=== PATIENT | female | born 1970 | race Caucasian/White ===

== ENCOUNTER 2017-10-30 16:59 | Inpatient (IN) | payer OTHER ==
[2017-10-30 17:26] VITALS: BMI 27.3
--- NOTE | 2017-10-30 18:04 | HP ---
CIWA Score - CIWA Score Nausea/Vomitin-Mild Nausea/No Vomiting Muscle Tremors: 4-Moderate,w/Arms Extend Anxiety: 4-Mod. Anxious/Guarded Agitation: 4-Moderately Restless Paroxysmal Sweats: 1-Minimal Palms Moist Orientation: 0-Oriented Tacttile Disturbances: 0-None Auditory Disturbances: 0-None Visual Disturbances: 0-None Headache: 0-None Present CIWA-Ar Total Score: 14 Admission ROS BHS - HPI Chief Complaint: withdrawal sx Allergies/Adverse Reactions: Allergies Allergy/AdvReac Type Severity Reaction Status Date / Time No Known Allergies Allergy Verified 10/30/17 17:30 History of Present Illness: 47 years old female with long history of alcohol nicotine dependence has anxiety and depression is admitted to detox Exam Limitations: No Limitations - Ebola screening Have you traveled outside of the country in the last 21 days: No Have you had contact with anyone from an Ebola affected area: No Have you been sick,other than usual withdrawal symptoms: No Do you have a fever: No - Review of Systems Constitutional: Changes in sleep, Weight Stable EENT: reports: No Symptoms Reported Respiratory: reports: No Symptoms reported Cardiac: reports: No Symptoms Reported GI: reports: Nausea, Poor Fluid Intake, Indigestion, Abdominal cramping : reports: No Symptoms Reported Musculoskeletal: reports: No Symptoms Reported Integumentary: reports: No Symptoms Reported Neuro: reports: Tremors Endocrine: reports: No Symptoms Reported Hematology: reports: No Symptoms Reported Psychiatric: reports: Judgement Intact, Orientated x3, Anxious, Depressed Other Systems: Reviewed and Negative Patient History - Patient Medical History Hx Anemia: No Hx Asthma: No Hx Chronic Obstructive Pulmonary Disease (COPD): No Hx Cancer: No Hx Cardiac Disorders: No Hx Congestive Heart Failure: No Hx Hypertension: No Hx Hypercholesterolemia: No Hx Pacemaker: No HX Cerebrovascular Accident: No Hx Seizures: No Hx Dementia: No Hx Diabetes: No Hx Gastrointestinal Disorders: No Hx Liver Disease: No Hx Genitourinary Disorders: No Hx Sexually Transmitted Disorders: No Hx Renal Disease (ESRD): No Hx Thyroid Disease: No Hx Human Immunodeficiency Virus (HIV): No Hx Hepatitis C: No Hx Depression: Yes Hx Suicide Attempt: No Hx Bipolar Disorder: No Hx Schizophrenia: No - Patient Surgical History Past Surgical History: No - PPD History Previous Implant?: Yes Documented Results: Negative w/o proof Implanted On Prior [facility] Admission?: No PPD to be Administered?: Yes - Reproductive History Last Menstrual Period: 10/15/17 Patient : No - Smoking Cessation Smoking history: Current every day smoker Have you smoked in the past 12 months: Yes Aproximately how many cigarettes per day: 10 Cigars Per Day: 0 Hx Chewing Tobacco Use: No Initiated information on smoking cessation: Yes 'Breaking Loose' booklet given: 10/30/17 - Substance & Tx. History Hx Alcohol Use: Yes Hx Substance Use: Yes Substance Use Type: Alcohol, Cocaine Hx Substance Use Treatment: Yes (2002) - Substances Abused Alcohol Route: Oral Frequency: Daily Amount used: VODKA 2 PINTS Age of first use: 11 Date of Last Use: 10/30/17 Family Disease History - Family Disease History Family Disease History: Other: Father (/mva), Brother (no brother) Admission Physical Exam BHS - Vital Signs Vital Signs: Vital Signs - 24 hr 10/30/17 17:22 Temperature 98.8 F Pulse Rate 76 Respiratory 18 Rate Blood Pressure 150/100 - Physical General Appearance: Yes: Appropriately Dressed, Mild Distress, Alcohol on Breath , Tremorous, Irritable, Sweating, Anxious HEENTM: Yes: Hearing grossly Normal, Normal ENT Inspection, Normocephalic, Normal Voice Respiratory: Yes: Chest Non-Tender, Lungs Clear, Normal Breath Sounds, No Respiratory Distress, No Accessory Muscle Use Neck: Yes: Supple, Trachea in good position Breast: Yes: Breasts Symetrical Cardiology: Yes: Regular Rhythm, Regular Rate, S1, S2 Abdominal: Yes: Normal Bowel Sounds, Non Tender, Soft Genitourinary: Yes: Within Normal Limits Back: Yes: Normal Inspection Musculoskeletal: Yes: full range of Motion, Gait Steady Extremities: Yes: Normal Inspection, Normal Range of Motion, Non-Tender, Tremors Neurological: Yes: Fully Oriented, Alert, Motor Strength 5/5, Normal Response, Depressed Affect Integumentary: Yes: Warm Lymphatic: Yes: Within Normal Limits - Diagnostic (1) Alcohol dependence with uncomplicated withdrawal Current Visit: Yes Status: Acute (2) Nicotine dependence Current Visit: Yes Status: Acute Qualifiers: Nicotine product type: cigarettes Substance use status: in withdrawal Qualified Code(s): F17.213 - Nicotine dependence, cigarettes, with withdrawal (3) GERD (gastroesophageal reflux disease) Current Visit: Yes Status: Chronic Qualifiers: Esophagitis presence: without esophagitis Qualified Code(s): K21.9 - Gastro -esophageal reflux disease without esophagitis (4) Depression (emotion) Current Visit: Yes Status: Suspected Qualifiers: Depression Type: dysthymia Qualified Code(s): F34.1 - Dysthymic disorder Cleared for Admission BHS - Detox or Rehab [facility] Level of Care: Medically Managed Detox Regimen/Protocol: Librium S Breath Alcohol Content Breath Alcohol Content: 0.130 Urine Pregancy Test - Result Urine Test Results: Negative- NO Line Present Urine Drug Screen - Results Drug Screen Negative: No Urine Drug Screen Results: BLU-Cocaine
[2017-10-30] MEDS ORDERED: P-EPHED 60MG/TRIPROLIDI 2.5MG TABLET PO PRN (18:07)
[2017-10-30] MEDS ORDERED: LOPERAMIDE HCL 2 MG CAPSULE PO PRN (18:07)
[2017-10-30] MEDS ORDERED: MAGNESIUM HYDROX 2400MG/30ML ORAL SUSPENSION 30 ML CUP PO PRN (18:07)
[2017-10-30] MEDS ORDERED: MAGNESIUM CITRATE 300 ML BOTTLE PO PRN (18:07)
[2017-10-30] MEDS ORDERED: MENTHOL/PHENOL 1 EACH UD MM PRN (18:07)
[2017-10-30] MEDS ORDERED: ACETAMINOPHEN 325 MG TABLET (FP) PO PRN (18:07)
[2017-10-30] MEDS ORDERED: MAG HYDROX/AL HYDROX/SIMETH 30 ML UNIT-DOSE CUP PO PRN (18:07)
[2017-10-30] MEDS ORDERED: NICOTINE POLACRILEX 2 MG GUM BC PRN (18:07)
[2017-10-30] MEDS: chlordiazePOXIDE HCL 25 MG CAPSULE PO PRN (20:30)
[2017-10-30] MEDS: RANITIDINE HCL 150 MG TABLET (FP) PO SCH ×2 (20:30→22:10)
[2017-10-30] MEDS: chlordiazePOXIDE HCL 25 MG CAPSULE PO SCH (22:10)
[2017-10-30] MEDS: THIAMINE HCL 100 MG TABLET (FP) PO SCH (22:10)
[2017-10-31 03:28] LABS: URINE APPEARANCE CLEAR; URINE BILIRUBIN NEGATIVE (NEGATIVE); URINE BLOOD NEGATIVE (NEGATIVE); URINE COLOR LTYELLOW; URINE GLUCOSE (UA) NEGATIVE (NEGATIVE); URINE KETONE NEGATIVE (NEGATIVE); URINE NITRITE NEGATIVE (NEGATIVE); URINE PROTEIN NEGATIVE (NEGATIVE); URINE UROBILINOGEN NEGATIVE mg/dL (0.2-1.0)
[2017-10-31] MEDS: chlordiazePOXIDE HCL 25 MG CAPSULE PO SCH ×4 (05:46→22:13)
[2017-10-31 09:49] LABS: MCH 32.2 pg (25.7-33.7); MCHC 34.3 g/dl (32.0-36.0); MEAN CELL VOLUME 93.9 fl (80-96); MEAN PLT VOLUME 7.6 fl (7.5-11.1); PLATELET COUNT 244 K/MM3 (134-434); RDW 12.6 % (11.6-15.6); WHITE BLOOD COUNT 6.5 K/mm3 (4.0-10.0)
--- NOTE | 2017-10-31 10:13 | EKG ---
Test Reason : Blood Pressure : / mmHG Vent. Rate : 062 BPM Atrial Rate : 062 BPM P-R Int : 134 ms QRS Dur : 094 ms QT Int : 426 ms P-R-T Axes : 031 048 039 degrees QTc Int : 432 ms NORMAL SINUS RHYTHM CANNOT RULE OUT INFERIOR INFARCT NO PREVIOUS ECGS AVAILABLE Confirmed by RADHA ONEIL MD ([id number]) on 10/31/2017 10:12:56 AM Referred By: Confirmed By:RADHA ONEIL MD
[2017-10-31 10:22] LABS: ALBUMIN 4.2 g/dl (3.4-5.0); ALK PHOS 74 U/L (45-117); ANION GAP 5 (8-16); BILIRUBIN,TOTAL 0.5 mg/dL (0.2-1.0); CALCIUM 8.7 mg/dL (8.5-10.1); CO2 31 mmol/L (21-32); CREATININE 0.9 mg/dL (0.55-1.02); GLUCOSE,RANDOM 92 mg/dL (74-106); SGOT/AST 22 U/L (15-37); SGPT/ALT 36 U/L (12-78); TOT PROT 7.6 g/dl (6.4-8.2)
[2017-10-31] MEDS: PRENATAL VITAMINS W/ FOLIC ACID TABLET (FP) PO SCH (10:32)
[2017-10-31] MEDS: RANITIDINE HCL 150 MG TABLET (FP) PO SCH ×2 (10:32→22:13)
[2017-10-31] MEDS: NICOTINE 14 MG/24 HOURS TOPICAL PATCH TD SCH (10:32)
[2017-10-31 11:47] LABS: HIV 1 & 2 AB NEGATIVE; HIV 1 AGp24 NEGATIVE
[2017-10-31] MEDS ORDERED: FLU VACCINE QUAD 60 MCG/0.5 ML (MDV 17-18) IM ONE (12:00)
[2017-10-31 12:10] LABS: URINE LEUK ESTERASE Negative (NEGATIVE)
--- NOTE | 2017-10-31 12:52 | CONSULT ---
[facility] Psychiatric Consult - Data Date of interview: 10/31/17 Admission source: [facility] Identifying data: Pt. is a 47 year old female, single, unemployed with no kids. Pt. admitted to for detox from alcohol and cocaine dependence. Substance Abuse History: Alcohol- begun drinking alcohol at age 14. Has been drinking heavily for the past 3 years. Reports drinking 2 pints of vodka and a bottle of wine per day. Last drink was on 10/30/2017. Cocaine- Begun using cocaine in College. Reports using cocaine several times per month. Approximately $300 per month. Last used cocaine " couple weeks ago.". Cigarettes- Smoke approximately 10 cigaettes per day. Begun smoking cigarettes at age 32. Medical History: Pt. denies. Psychiatric History: Pt. denies a history of psychiatric hospitalization but reports a history of depression and bipolar (not receiving treatment for bipolar disorder) and is currently on effexor 150mg PO qam. Physical/Sexual Abuse/Trauma History: Pt. denies. Mental Status Exam - Mental Status Exam Alert and Oriented to: Time, Place, Person Cognitive Function: Good Patient Appearance: Well Groomed Mood: Euthymic Affect: Appropriate Patient Behavior: Appropriate, Cooperative Speech Pattern: Clear Voice Loudness: Normal Thought Process: Goal Oriented Thought Disorder: Not Present Hallucinations: Denies Suicidal Ideation: Denies Homicidal Ideation: Denies Insight/Judgement: Fair Sleep: Poorly (Will order trazodone 50mg for insomnia.) Appetite: Good Muscle strength/Tone: Normal Gait/Station: Normal Psychiatric Findings - Problem List ([place] 1, 2,3) (1) Substance induced mood disorder Current Visit: Yes Status: Acute (2) Alcohol dependence with uncomplicated withdrawal Current Visit: Yes Status: Acute (3) Nicotine dependence Current Visit: Yes Status: Acute Qualifiers: Nicotine product type: cigarettes Substance use status: in withdrawal Qualified Code(s): F17.213 - Nicotine dependence, cigarettes, with withdrawal - Initial Treatment Plan Initial Treatment Plan: Psychoeducation provided. Chart reviewed. Contacted patient's pharmacy and it was confirmed that patient picked up her prescription of effexor 150mg ER on 10/22/2017 Pt. to be prescribed effexor 150mg ER qam. Pt.also to be started on trazodone 50mg qhs for insomnia. Pt. reports positive effect from previously taking trazodone 50mg for insomnia. Benefits and side effects discussed with patient. Verbal consent given by patient. Pt. agreeable with plan. Will continue to monitor.
--- NOTE | 2017-10-31 13:15 | PN ---
S CIWA - CIWA Score Nausea/Vomitin Muscle Tremors: 3 Anxiety: 3 Agitation: 3 Paroxysmal Sweats: 3 Orientation: 0-Oriented Tacttile Disturbances: 1-Very Mild Itch/Numbness Auditory Disturbances: 0-None Visual Disturbances: 0-None Headache: 1-Very Mild CIWA-Ar Total Score: 17 S Progress Note (SOAP) Subjective: nausea, sweats, interrupted sleep, anxiety, tremors Objective: 10/31/17 13:14 Vital Signs - 24 hr 10/30/17 10/30/17 10/31/17 17:22 21:53 00:26 Temperature 98.8 F 98.4 F Pulse Rate 76 68 78 Respiratory 18 18 18 Rate Blood Pressure 150/100 158/69 10/31/17 10/31/17 10/31/17 00:30 02:26 03:26 Temperature Pulse Rate 83 64 Respiratory 18 18 18 Rate Blood Pressure 10/31/17 10/31/17 10/31/17 03:30 05:30 06:39 Temperature 97.9 F Pulse Rate 64 63 63 Respiratory 18 18 16 Rate Blood Pressure 139/88 10/31/17 10:01 Temperature 97.4 F L Pulse Rate 69 Respiratory 18 Rate Blood Pressure 133/92 Laboratory Tests 10/31/17 10/31/17 10/31/17 00:00 07:00 07:00 WBC 6.5 RBC 4.77 Hgb 15.4 H Hct 44.8 MCV 93.9 MCH 32.2 MCHC 34.3 RDW 12.6 Plt Count 244 MPV 7.6 Sodium Potassium Chloride Carbon Dioxide Anion Gap BUN Creatinine Creat Clearance w eGFR Random Glucose Calcium Total Bilirubin AST ALT Alkaline Phosphatase Total Protein Albumin Urine Color Ltyellow Urine Appearance Clear Urine pH 6.0 Ur Specific [place] 1.016 Urine Protein Negative Urine Glucose (UA) Negative Urine Ketones Negative Urine Blood Negative Urine Nitrite Negative Urine Bilirubin Negative Urine Urobilinogen Negative Ur Leukocyte Esterase Negative RPR Titer HIV 1&2 Antibody Screen Negative HIV P24 Antigen Negative 10/31/17 10/31/17 07:00 07:00 WBC RBC Hgb Hct MCV MCH MCHC RDW Plt Count MPV Sodium 137 Potassium 4.1 Chloride 101 Carbon Dioxide 31 Anion Gap 5 L BUN 17 Creatinine 0.9 Creat Clearance w eGFR > 60 Random Glucose 92 Calcium 8.7 Total Bilirubin 0.5 AST 22 ALT 36 Alkaline Phosphatase 74 Total Protein 7.6 Albumin 4.2 Urine Color Urine Appearance Urine pH Ur Specific [place] Urine Protein Urine Glucose (UA) Urine Ketones Urine Blood Urine Nitrite Urine Bilirubin Urine Urobilinogen Ur Leukocyte Esterase RPR Titer Nonreactive HIV 1&2 Antibody Screen HIV P24 Antigen Assessment: 10/31/17 13:15 withdrawal sx, cotn detox, prn meications, fluids, encourage ambualtion
[2017-10-31] MEDS: guaiFENesin/D-METHORPHAN HB 10 ML UNIT-DOSE CUPS PO PRN (19:32)
[2017-10-31] MEDS: traZODone HCL 50 MG TABLET (FP) PO SCH (22:13)
[2017-10-31] MEDS: THIAMINE HCL 100 MG TABLET (FP) PO SCH (22:13)
[2017-11-01] MEDS: chlordiazePOXIDE HCL 25 MG CAPSULE PO SCH ×3 (05:11→17:07)
[2017-11-01] MEDS: PRENATAL VITAMINS W/ FOLIC ACID TABLET (FP) PO SCH (10:22)
[2017-11-01] MEDS: NICOTINE 14 MG/24 HOURS TOPICAL PATCH TD SCH (10:22)
[2017-11-01] MEDS: RANITIDINE HCL 150 MG TABLET (FP) PO SCH ×2 (10:24→22:32)
[2017-11-01] MEDS: VENLAFAXINE HCL 150 MG E.R. CAPSULE PO SCH (10:24)
--- NOTE | 2017-11-01 14:42 | PN ---
S CIWA - CIWA Score Nausea/Vomitin-Mild Nausea/No Vomiting Muscle Tremors: 3 Anxiety: 4-Mod. Anxious/Guarded Agitation: 3 Paroxysmal Sweats: 3 Orientation: 0-Oriented Tacttile Disturbances: 0-None Auditory Disturbances: 0-None Visual Disturbances: 0-None Headache: 0-None Present CIWA-Ar Total Score: 14 BHS Progress Note (SOAP) Subjective: Sweating,anxiety,tremors,restless,interrupted sleep. Objective: 11/01/17 14:41 Vital Signs - 8 hr 11/01/17 11/01/17 10:00 14:36 Temperature 97.7 F 97.7 F Pulse Rate 74 70 Respiratory 18 18 Rate Blood Pressure 115/76 137/75 Laboratory Tests 10/30/17 10/31/17 10/31/17 07:00 00:00 07:00 WBC RBC Hgb Hct MCV MCH MCHC RDW Plt Count MPV Sodium Potassium Chloride Carbon Dioxide Anion Gap BUN Creatinine Creat Clearance w eGFR Random Glucose Calcium Total Bilirubin AST ALT Alkaline Phosphatase Total Protein Albumin Urine Color Ltyellow Urine Appearance Clear Urine pH 6.0 Ur Specific [place] 1.016 Urine Protein Negative Urine Glucose (UA) Negative Urine Ketones Negative Urine Blood Negative Urine Nitrite Negative Urine Bilirubin Negative Urine Urobilinogen Negative Ur Leukocyte Esterase Negative RPR Titer Hepatitis C Antibody <0.1 HIV 1&2 Antibody Screen Negative HIV P24 Antigen Negative 10/31/17 10/31/17 10/31/17 07:00 07:00 07:00 WBC 6.5 RBC 4.77 Hgb 15.4 H Hct 44.8 MCV 93.9 MCH 32.2 MCHC 34.3 RDW 12.6 Plt Count 244 MPV 7.6 Sodium 137 Potassium 4.1 Chloride 101 Carbon Dioxide 31 Anion Gap 5 L BUN 17 Creatinine 0.9 Creat Clearance w eGFR > 60 Random Glucose 92 Calcium 8.7 Total Bilirubin 0.5 AST 22 ALT 36 Alkaline Phosphatase 74 Total Protein 7.6 Albumin 4.2 Urine Color Urine Appearance Urine pH Ur Specific [place] Urine Protein Urine Glucose (UA) Urine Ketones Urine Blood Urine Nitrite Urine Bilirubin Urine Urobilinogen Ur Leukocyte Esterase RPR Titer Nonreactive Hepatitis C Antibody HIV 1&2 Antibody Screen HIV P24 Antigen labs noted Assessment: 11/01/17 14:41 Withdrawal sx. Plan: Continue detox
[2017-11-01] MEDS: chlordiazePOXIDE HCL 25 MG CAPSULE PO PRN (18:55)
[2017-11-01] MEDS: traZODone HCL 50 MG TABLET (FP) PO SCH (22:32)
[2017-11-01] MEDS: THIAMINE HCL 100 MG TABLET (FP) PO SCH (22:32)
[2017-11-01] MEDS: chlordiazePOXIDE 5 MG CAPSULE PO SCH (22:32)
[2017-11-02] MEDS: chlordiazePOXIDE 5 MG CAPSULE PO SCH ×3 (06:18→17:24)
--- NOTE | 2017-11-02 10:01 | PN ---
BHS Progress Note (SOAP) Subjective: interrupted sleep anxiety Objective: 11/02/17 10:00 Vital Signs Temperature 97.7 F 11/02/17 09:54 Pulse Rate 69 11/02/17 09:54 Respiratory Rate 16 11/02/17 09:54 Blood Pressure 115/87 11/02/17 09:54 O2 Sat by Pulse Oximetry (%) Laboratory Last Values WBC 6.5 K/mm3 (4.0-10.0) 10/31/17 07:00 RBC 4.77 M/mm3 (3.60-5.2) 10/31/17 07:00 Hgb 15.4 GM/dL (10.7-15.3) H 10/31/17 07:00 Hct 44.8 % (32.4-45.2) 10/31/17 07:00 MCV 93.9 fl (80-96) 10/31/17 07:00 MCH 32.2 pg (25.7-33.7) 10/31/17 07:00 MCHC 34.3 g/dl (32.0-36.0) 10/31/17 07:00 RDW 12.6 % (11.6-15.6) 10/31/17 07:00 Plt Count 244 K/MM3 (134-434) 10/31/17 07:00 MPV 7.6 fl (7.5-11.1) 10/31/17 07:00 Sodium 137 mmol/L (136-145) 10/31/17 07:00 Potassium 4.1 mmol/L (3.5-5.1) 10/31/17 07:00 Chloride 101 mmol/L (98-107) 10/31/17 07:00 Carbon Dioxide 31 mmol/L (21-32) 10/31/17 07:00 Anion Gap 5 (8-16) L 10/31/17 07:00 BUN 17 mg/dL (7-18) 10/31/17 07:00 Creatinine 0.9 mg/dL (0.55-1.02) 10/31/17 07:00 Creat Clearance w eGFR > 60 (>60) 10/31/17 07:00 Random Glucose 92 mg/dL (74-106) 10/31/17 07:00 Calcium 8.7 mg/dL (8.5-10.1) 10/31/17 07:00 Total Bilirubin 0.5 mg/dL (0.2-1.0) 10/31/17 07:00 AST 22 U/L (15-37) 10/31/17 07:00 ALT 36 U/L (12-78) 10/31/17 07:00 Alkaline Phosphatase 74 U/L (45-117) 10/31/17 07:00 Total Protein 7.6 g/dl (6.4-8.2) 10/31/17 07:00 Albumin 4.2 g/dl (3.4-5.0) 10/31/17 07:00 Urine Color Ltyellow 10/31/17 00:00 Urine Appearance Clear 10/31/17 00:00 Urine pH 6.0 (5.0-8.0) 10/31/17 00:00 Ur Specific [place] 1.016 (1.001-1.035) 10/31/17 00:00 Urine Protein Negative (NEGATIVE) 10/31/17 00:00 Urine Glucose (UA) Negative (NEGATIVE) 10/31/17 00:00 Urine Ketones Negative (NEGATIVE) 10/31/17 00:00 Urine Blood Negative (NEGATIVE) 10/31/17 00:00 Urine Nitrite Negative (NEGATIVE) 10/31/17 00:00 Urine Bilirubin Negative (NEGATIVE) 10/31/17 00:00 Urine Urobilinogen Negative mg/dL (0.2-1.0) 10/31/17 00:00 Ur Leukocyte Esterase Negative (NEGATIVE) 10/31/17 00:00 RPR Titer Nonreactive (NONREACTIVE) 10/31/17 07:00 Hepatitis C Antibody <0.1 s/co ratio (0.0-0.9) 10/30/17 07:00 HIV 1&2 Antibody Screen Negative 10/31/17 07:00 HIV P24 Antigen Negative 10/31/17 07:00 lab noted Assessment: 11/02/17 10:01 withdrawal sx Plan: continue detox
[2017-11-02] MEDS: RANITIDINE HCL 150 MG TABLET (FP) PO SCH ×2 (10:26→22:35)
[2017-11-02] MEDS: PRENATAL VITAMINS W/ FOLIC ACID TABLET (FP) PO SCH (10:26)
[2017-11-02] MEDS: hydrOXYzine PAMOATE 50 MG CAPSULE (FP) PO PRN ×3 (10:26→19:26)
[2017-11-02] MEDS: VENLAFAXINE HCL 150 MG E.R. CAPSULE PO SCH (10:27)
[2017-11-02] MEDS: NICOTINE 14 MG/24 HOURS TOPICAL PATCH TD SCH (10:27)
[2017-11-02] MEDS: guaiFENesin/D-METHORPHAN HB 10 ML UNIT-DOSE CUPS PO PRN (10:37)
[2017-11-02] MEDS: chlordiazePOXIDE HCL 10 MG CAPSULE PO SCH (22:35)
[2017-11-02] MEDS: traZODone HCL 50 MG TABLET (FP) PO SCH (22:35)
[2017-11-02] MEDS: THIAMINE HCL 100 MG TABLET (FP) PO SCH (22:35)
[2017-11-03] MEDS: chlordiazePOXIDE HCL 10 MG CAPSULE PO SCH (05:14)
[2017-11-03 06:16] VITALS: BP 137/82; PULSE 56; TEMP 96.3
--- NOTE | 2017-11-03 08:45 | DS ---
[facility] Detox Discharge Summary Admission Date: 10/30/17 Discharge Date: 11/03/17 - History Present History: Alcohol Dependence - Physical Exam Results Vital Signs: Vital Signs Temperature 96.3 F L 11/03/17 06:00 Pulse Rate 56 L 11/03/17 06:00 Respiratory Rate 18 11/03/17 06:00 Blood Pressure 137/82 11/03/17 06:00 O2 Sat by Pulse Oximetry (%) - Treatment Hospital Course: Detox Protocol Followed, Detoxed Safely, Responded well, Discharged Condition Good, Rehab Referral Accepted - Medication Discharge Medications: Ambulatory Orders Venlafaxine HCl ER [Effexor Xr -] 150 mg PO DAILY 10/30/17 - Diagnosis (1) Alcohol dependence with uncomplicated withdrawal Current Visit: Yes Status: Chronic (2) Nicotine dependence Current Visit: Yes Status: Chronic Qualifiers: Nicotine product type: cigarettes Substance use status: in withdrawal Qualified Code(s): F17.213 - Nicotine dependence, cigarettes, with withdrawal (3) Substance induced mood disorder Current Visit: Yes Status: Acute (4) GERD (gastroesophageal reflux disease) Current Visit: Yes Status: Chronic Qualifiers: Esophagitis presence: without esophagitis Qualified Code(s): K21.9 - Gastro -esophageal reflux disease without esophagitis (5) Depression (emotion) Current Visit: Yes Status: Suspected Qualifiers: Depression Type: dysthymia Qualified Code(s): F34.1 - Dysthymic disorder - AMA Did Patient Leave Against Medical Advice: No
[2017-11-03] MEDS: VENLAFAXINE HCL 150 MG E.R. CAPSULE PO SCH (09:02)
[2017-11-03] MEDS: PRENATAL VITAMINS W/ FOLIC ACID TABLET (FP) PO SCH (09:02)
[2017-11-03] MEDS: RANITIDINE HCL 150 MG TABLET (FP) PO SCH (09:02)
[2017-11-03] MEDS: NICOTINE 14 MG/24 HOURS TOPICAL PATCH TD SCH (09:03)
== END 2017-11-03 09:07 | disposition home or self-care (01) | DRG 775 ==
LOC: YASAS 16:59 → Y6N 18:19
PROVIDERS: ADMIT Internal Medicine; ATTEND Internal Medicine
PROC: HZ2ZZZZ Detoxification Services for Substance Abuse Treatment (ICD-10-PCS; principal; 2017-10-30)
DX: F10.230 Alcohol dependence with withdrawal, uncomplicated (principal); F17.213 Nicotine dependence, cigarettes, with withdrawal; F19.24 Other psychoactive substance dependence with psychoactive substance-induced mood disorder; F34.1 Dysthymic disorder; K21.9 Gastro-esophageal reflux disease without esophagitis
CPT/HCPCS: 36415; 80053; 81003; 85027; 86593; 86803; 87389; 90688; 93005; 93010